=== PATIENT | male | born 1995 | race Caucasian/White ===

== ENCOUNTER 2018-04-10 23:44 | Emergency (ER) | payer BC | END 2018-04-11 01:59 | disposition home or self-care (01) | LOC: ERS 23:44 | DX: S00.03XA Contusion of scalp, initial encounter (principal); V43.62XA Car passenger injured in collision with other type car in traffic accident, initial encounter; Y92.481 Parking lot as the place of occurrence of the external cause | CPT/HCPCS: 99283 ==